=== PATIENT | male | born 1945 | race Caucasian/White ===

== ENCOUNTER 2016-09-08 09:43 | Day surgery (SDC) | payer MEDICARE, OTHER ==
[2016-09-08 10:53] LABS: ABSOLUTE NEUTROPHIL COUNT 10.7 K/mm3 (1.8-7.7); BASO % 0.2 % (0.2-1.0); EOS # 0.1 (0.0-0.5); EOS % 0.8 % (0.9-2.9); HEMATOCRIT 41.3 % (32.0-52.0); HEMOGLOBIN 13.5 gm/l (14.0-18.0); IMM NEUT # 0.1 K/mm3 (0-0.2); IMM NEUT% 0.4 % (0-1); LYMPH # 0.7 (1.0-4.8); MEAN CELL VOLUME 86.6 fl (80.0-94.0); MEAN CORPUSCULAR HEMOGLOBIN 28.3 pg (27.0-31.0); MEAN CORPUSCULAR HGB CONC 32.7 g/dl (33.0-37.0); MEAN PLATELET VOLUME 9.3 fl (7.4-10.4); MONO # 0.4 (0.0-0.8); MONO % 3.4 % (4-12); NEUT % 89.2 % (43-75); PLATELET COUNT 244 K/mm3 (130-400); RED CELL DISTRIBUTION WIDTH 13.9 % (11.5-14.5)
[2016-09-08 11:06] LABS: ALB/GLOB RATIO 1.4 (>1.0); ALBUMIN 4.1 gm/dL (3.5-5.7); CALCIUM 9.6 mg/dL (8.6-10.3)
--- NOTE | 2016-09-08 11:20 | CT ---
HEAD W/O CON COMPARISON: None HISTORY: Difficulty swallowing. TECHNIQUE: Using a [employer] [address] scanner, images were obtained through the head. An automated dose reduction technique was used to minimize patient radiation dose. DOSE INFORMATION: CTDIvol (mGy): 51.70 DLP(mGycm): 887.30 FINDINGS: Mass: None Intracranial Hemorrhage: None Acute Infarction: None Cerebral hemispheres: Mild atrophy. Low-attenuation in the white matter. Basal ganglia: Normal Thalami: Normal Brainstem: Normal Cerebellum: Normal Ventricles: Normal Basilar cisterns: Normal Corpus callosum: Normal Pituitary fossa: Normal Middle ears and mastoid air cells: Normal Orbits and sinuses: Normal Skull and scalp: Normal Dural sinuses and vessels: Normal IMPRESSION: No acute finding. Mild cerebral atrophy and chronic small vessel ischemic change in the cerebral white matter. Report was sent to the emergency department electronic medical record system 09/08/2016 at 11:21
[2016-09-08] MEDS ORDERED: LACTATED RINGERS 1,000 ML ONE (12:45)
--- NOTE | 2016-09-08 13:01 | RAD ---
CHEST - 2 VIEWS COMPARISON: None. HISTORY: Sore throat. FINDINGS: Views: Frontal and lateral chest Lungs: Normal Heart and vessels: Normal Trachea and bronchi: Normal Mediastinum and corinne: Normal Costophrenic sulci: Normal Chest wall and bones: No acute finding. Degenerative changes in the spine. Upper abdomen: Normal. IMPRESSION: No evidence of pneumonia.
[2016-09-08] MEDS ORDERED: LACTATED RINGERS 1,000 ML IV SCH (13:15)
[2016-09-08] MEDS ORDERED: PROPOFOL 20 ML IV ONE (13:52)
[2016-09-08 17:59] LABS: HELICOBACTER PYLORII DETECTION NEGATIVE (NEGATIVE)
== END 2016-09-08 15:00 | disposition home or self-care (01) ==
LOC: ED 09:43 → EDBD 09:43 → SUPCPDRO 11:37 → SDC 11:37
PROVIDERS: ATTEND Internal Medicine Gastroenterology
PROC: 0DB68ZX Excision of Stomach, Via Natural or Artificial Opening Endoscopic, Diagnostic (ICD-10-PCS; principal; 2016-09-08)
DX: K29.70 Gastritis, unspecified, without bleeding (principal)
CPT/HCPCS: 82150; 85025; 80053; 87081; 84484; 71020; 70450; 99285 ×2; 93005; 43239; J7120